=== PATIENT | female | born 1965 | race African-American/Black ===

== ENCOUNTER 2017-05-26 09:05 | Emergency (ER) | payer OTHER ==
[~2017-05-26] VITALS: Ht 162.6 cm; Wt 109.0 kg
[2017-05-26 09:15] VITALS: BP 158/78
[2017-05-26 10:50] LABS: HEMATOCRIT. 37.7 % (36.0-48.0); HEMOGLOBIN. 13.1 g/dL (12.0-16.0); MEAN CORPUSCULAR HEMOGLOBIN 30.1 pg (28.0-32.0); MEAN CORPUSCULAR VOLUME 86.9 fL (81.0-99.0); MEAN PLATELET VOLUME 8.4 fl (7.4-10.4); PLATELET 279 x1000/uL (130-400); RED BLOOD CELL COUNT 4.35 mill/uL (4.2-5.4); RED CELL DISTRIBUTION WIDTH 13.5 % (11.6-14.6)
[2017-05-26 10:56] LABS: PROTHROMBIN TIME 10.6 sec
[2017-05-26 11:03] LABS: CARBON DIOXIDE 28 mEq/L (21-32); CHLORIDE 104 mEq/L (98-107)
[2017-05-26 11:09] LABS: HCG SCREEN NEGATIVE
[2017-05-26 11:16] LABS: PLATELET ESTIMATE NORMAL
== END 2017-05-26 12:07 | disposition home or self-care (01) ==
LOC: ER 09:05
DX: R06.02 Shortness of breath (principal)
CPT/HCPCS: 36415; 71010; 80053; 84703; 85025; 85610; 93005; 99285

== ENCOUNTER 2018-06-17 07:37 | Emergency (ER) | payer OTHER ==
[~2018-06-17] VITALS: Ht 162.6 cm; Wt 107.0 kg
[2018-06-17 11:34] VITALS: BP 158/82
== END 2018-06-17 11:36 | disposition home or self-care (01) ==
LOC: ER 07:59
DX: M25.511 Pain in right shoulder (principal)
CPT/HCPCS: 73030; 81025; 99284

== ENCOUNTER 2019-08-26 14:22 | Emergency (ER) | payer OTHER ==
[~2019-08-26] VITALS: Ht 165.1 cm; Wt 111.0 kg
[2019-08-26] MEDS ORDERED: SODIUM CHLORIDE 0.9% 1,000 ML IV ONE (18:15)
[2019-08-26 18:25] LABS: BASOPHILS % 0.3 % (0.0-2.0); EOSINOPHILS % 0.1 % (0.0-5.0); HEMATOCRIT. 47.1 % (36.0-48.0); HEMOGLOBIN. 15.9 g/dL (12.0-16.0); LYMPHOCYTES % 15.1 % (20.0-50.0); MEAN CORPUSCULAR VOLUME 88.9 fL (81.0-99.0); MEAN PLATELET VOLUME 8.7 fl (7.4-10.4); MONOCYTES % 2.8 % (2.0-8.0); NEUTROPHILS % 81.7 % (40.0-76.0); PLATELET 338 x1000/uL (130-400); RED CELL DISTRIBUTION WIDTH 13.9 % (11.6-14.6)
[2019-08-26 18:28] LABS: CHLORIDE 99 mEq/L (98-107)
[2019-08-26] MEDS ORDERED: ACETAMINOPHEN 325MG TABLET PO PRN (19:15)
[2019-08-26] MEDS ORDERED: ONDANSETRON HCL 4MG/2ML INJ IV PRN (19:15)
[2019-08-26] MEDS ORDERED: CLONIDINE 0.1MG TABLET PO PRN (19:15)
[2019-08-26] MEDS ORDERED: METOCLOPRAMIDE HCL 10MG/2ML VIAL IV ONE (21:15)
[2019-08-26] MEDS ORDERED: MAGNESIUM/ALUMINUM HYDROXIDE/SIMETHICONE 30ML UDC PO ONE (21:15)
[2019-08-26] MEDS ORDERED: VISCOUS LIDOCAINE 2% 15 ML UDC MM ONE (21:15)
[2019-08-26] MEDS ORDERED: FAMOTIDINE 20MG/2ML VIAL IV ONE (21:15)
[2019-08-26 21:30] VITALS: BP 164/88
[2019-08-27] MEDS ORDERED: AMLODIPINE 5MG TABLET PO SCH (09:00)
== END 2019-08-26 22:13 | disposition left against medical advice (07) ==
LOC: ER 15:00 → EDBEDREQTM 18:22 → CANRESERV 19:24 → ENRESERV 19:24 → ER 22:13 → CANBEDREQ 22:27
DX: R07.89 Other chest pain (principal); F41.9 Anxiety disorder, unspecified; R55 Syncope and collapse; E86.0 Dehydration; D25.9 Leiomyoma of uterus, unspecified; R73.03 Prediabetes; I10 Essential (primary) hypertension; E78.00 Pure hypercholesterolemia, unspecified; E66.01 Morbid (severe) obesity due to excess calories; Z68.41 Body mass index [BMI] 40.0-44.9, adult
CPT/HCPCS: 36415; 71045; 80053; 80061; 83690; 83880; 84443; 84484; 85025; 93005; 96361; 96374; 96375; 99284; J2405; J2765; J3490; J7030